=== PATIENT | female | born 1970 | race Caucasian/White ===

== ENCOUNTER 2025-05-03 09:42 | Emergency (ER) | payer MEDICAID ==
[~2025-05-03] VITALS: Ht 160 cm; Wt 77.0 kg
[2025-05-03 09:53] VITALS: O2SAT 98
[2025-05-03 10:42] LABS: CLARITY URINE CLOUDY (CLEAR); COLOR URINE DARK YELLOW (YELLOW); GLUCOSE URINE NEGATIVE (NEGATIVE); KETONES URINE 1+ (NEGATIVE); LEUKOCYTE ESTERASE URINE 2+ (NEGATIVE); NITRITE URINE NEGATIVE (NEGATIVE); OCCULT BLOOD URINE NEGATIVE (NEGATIVE); PH URINE 6.0 (4.5-8.0); PROTEIN URINE 1+ (NEGATIVE); SPECIFIC GRAVITY URINE 1.034 (1.005-1.030); UROBILINOGEN URINE 1.0 E.U./dL (0.2-1.0)
[2025-05-03 10:55] LABS: MUCUS URINE 2+ /lpf (< = 2+); SQUAMOUS EPITHELIAL CELL URINE 3+ /lpf (RARE/1+)
[2025-05-03 10:56] LABS: BACTERIA URINE 4+; RBC URINE 0-2 /hpf (0-2)
[2025-05-03] MEDS: METHOCARBAMOL 500MG TABLET PO ONE (11:14)
[2025-05-03] MEDS: KETOROLAC 30MG/ML VIAL IM ONE (11:14)
[2025-05-03] MEDS ORDERED: CEPH500C2 MT (11:37)
[2025-05-03] MEDS ORDERED: GUAI-450 MT (11:37)
[2025-05-03] MEDS ORDERED: METH-653 MT (11:37)
[2025-05-03] MEDS ORDERED: IBUP-2029 MT (11:37)
[2025-05-03 12:01] VITALS: BP 122/76; PULSE 69; RESP 16; TEMP 36.7; O2SAT 98
== END 2025-05-03 12:03 | disposition home or self-care (01) ==
LOC: ER 09:42
DX: S33.5XXA Sprain of ligaments of lumbar spine, initial encounter (principal); J06.9 Acute upper respiratory infection, unspecified; Z79.899 Other long term (current) drug therapy; X58.XXXA Exposure to other specified factors, initial encounter; Y93.89 Activity, other specified; Y92.89 Other specified places as the place of occurrence of the external cause; Y99.8 Other external cause status
CPT/HCPCS: 81003; 71045; 96372; 99284; J1885; Z7610